=== PATIENT | female | born 1980 | race Caucasian/White ===

== ENCOUNTER 2024-08-14 12:58 | Outpatient (AMB) | payer MEDICAID, SELFPAY ==
[2024-08-14 13:08] VITALS: BP 119/79; PULSE 92; RESP 19; TEMP 36.7; O2SAT 97; BMI 39.9
--- NOTE | 2024-08-14 13:08 | ORTHONT_ITS ---
Vital signs 08/14/24 13:08 Height 1.68 m Height Method Stated Weight 112.236 kg Weight Measurement Method Standing Scale BMI 39.9 BP 119/79 Blood Pressure Source Automatic Cuff Blood Pressure Location Right Upper Arm Position Sitting Respiration 19 Pulse 92 Pulse Source Monitor Temp 98.1 F Temp Source Oral Pulse Oximetry (%) 97 Oxygen Delivery Method Room Air Med/Allergies Allergies & Medications Allergies Unable to Assess Allergy (Verified 08/14/24 13:10) Medication Reconciliation ibuprofen 800 mg tablet 800 mg PO Q6H 08/14/24 [History Confirmed 08/14/24] meloxicam 7.5 mg tablet 7.5 mg PO QDAY #45 tabs 08/14/24 [Rx] Exam Exam Patient is in no acute distress and is cooperative with the examination today. Breathing is nonlabored. Patient has a normal mood and affect. The patient has a gait that is nonantalgic Bilateral extremities were evaluated and demonstrates sensation intact to light touch. Palpable pedal pulses are present. No significant edema is present. Bilateral hips were examined. The patient has no pain with log roll of the hips. Internal rotation to 30 degrees and external rotation to 30 degrees is painless. Negative FADIR. Right knee was examined today. The right knee is in reasonable alignment. Range of motion from 0-120 degrees. Knee is stable to varus and valgus as well as AP translation with <5mm. Patient has a negative McMurrays. There is no pain with patellofemoral compression and no crepitus noted. The knee is nontender to palpation. Left knee was examined today. The left knee is in neutral alignment. Range of motion from 0-120 degrees. Knee is stable to varus and valgus as well as AP translation with <5mm. Patient has a positive McMurrays. There is no pain with patellofemoral compression and no crepitus noted. The knee is Tender to palpation medially Assessment and Plan Problem List (1) Pain in left knee: Status: Acute Plan: Patient is a pleasant 44-year-old female with left knee pain and left knee arthritis as well as a left knee meniscal tear. I would like to see her weightbearing x-rays. She is not tried injections or anti-inflammatories. We will start with both of them. Will get her authorized for injection at the next visit. She has no mechanical symptoms and thus it is reasonable to start with conservative treatment. Office Procedures GNS Level of Care Nursing/Assessment Patient Status: Initial/New Patient Nursing Assessment/Reassesment: Medication Reconciliation, Update PMH in EMR and Vital Signs Coordination of Care: Complex Care/Chronic Disease 5 or more, Education Complex Pt/Fam, Consent,records obtained, informed consent and Staff clarify orders New Patient Charge New Patient Point Assignment: 1099 New Patient Point Charge: CARDIOLOGY CLINICAL CONSULTANT Level 3 (2110-3247) [place] Intake Visit Data Collection New Patient or Established: New Patient (never been to [facility]) Reason for Visit:: LEFT KNEE PAIN [employer]estock [employer] Worker Required: No Questionairres Past Medical History Past Medical History Have you ever been diagnosed with any of the following: Respiratory Problems Smoking: Yes Smoking Cessation Counseling: Yes Subjective Visit Visit for: new patient and knee Immunization / Flu Flu Vaccine in the Last 12 Months: Yes Flu Vaccine Exclusion Criteria: Already Received History of Present Illness Chief complaint: LEFT KNEE PAIN Jihan is a pleasant 44-year-old female with left knee pain that is been ongoing for about a year. She reports the pain is the primary complaint. The pain is on the medial aspect of her knee. She works at nights and is fairly active. She has not had any significant conservative treatment for her left knee except for physical therapy Personal History Red flag PMH: smoker BMI Counceling provided: Yes Pain Pain level (0-10): 8 Pain duration: CONSTANT Pain location: outside (lateral) and anterior Pain quality: sharp Pain timing: night, increases with activity and stairs Associated signs & symptoms: none Ambulatory data Ambulatory device: none Treatments Improvement with previous injections: No Improvement with PT: Yes Improvement with NSAIDS: yes Review of Systems Review of Systems: All systems negative unless otherwise noted in HPI.
== END 2024-08-14 13:33 | disposition home or self-care (01) ==
PROVIDERS: PCP Physician Assistant; Referring Provider Physician Assistant; Supervising Provider Orthopaedic Surgery Adult Reconstructive Orthopaedic Surgery; Visit Provider Orthopaedic Surgery Adult Reconstructive Orthopaedic Surgery
DX: M25.562 Pain in left knee (principal); M17.12 Unilateral primary osteoarthritis, left knee; S83.207A Unspecified tear of unspecified meniscus, current injury, left knee, initial encounter; X58.XXXA Exposure to other specified factors, initial encounter
CPT/HCPCS: 99203; G0463

== ENCOUNTER 2024-08-30 07:49 | Outpatient (AMB) | payer MEDICAID, SELFPAY ==
[2024-08-30 08:13] VITALS: BP 132/83; PULSE 78; RESP 19; TEMP 36.7; O2SAT 98; BMI 37.8
--- NOTE | 2024-08-30 08:13 | ORTHONT_ITS ---
Vital signs 08/30/24 08:13 Height 1.68 m Height Method Stated Weight 106.793 kg Weight Measurement Method Standing Scale BMI 37.8 BP 132/83 H Blood Pressure Source Automatic Cuff Blood Pressure Location Left Upper Arm Position Sitting Respiration 19 Pulse 78 Pulse Source Monitor Temp 98.0 F Temp Source Temporal Artery Scan Pulse Oximetry (%) 98 Oxygen Delivery Method Room Air Med/Allergies Allergies & Medications Allergies Unable to Assess Allergy (Verified 08/30/24 08:14) Medication Reconciliation ibuprofen 800 mg tablet 800 mg PO Q6H 08/14/24 [History Confirmed 08/30/24] meloxicam 7.5 mg tablet 7.5 mg PO QDAY #45 tabs 08/14/24 [Rx Confirmed 08/30/24] Exam Exam Patient is in no acute distress and is cooperative with the examination today. Breathing is nonlabored. Patient has a normal mood and affect. The patient has a gait that is nonantalgic Bilateral extremities were evaluated and demonstrates sensation intact to light touch. Palpable pedal pulses are present. No significant edema is present. Bilateral hips were examined. The patient has no pain with log roll of the hips. Internal rotation to 30 degrees and external rotation to 30 degrees is painless. Negative FADIR. Right knee was examined today. The right knee is in reasonable alignment. Range of motion from 0-120 degrees. Knee is stable to varus and valgus as well as AP translation with <5mm. Patient has a negative McMurrays. There is no pain with patellofemoral compression and no crepitus noted. The knee is nontender to palpation. Left knee was examined today. The left knee is in neutral alignment. Range of motion from 0-120 degrees. Knee is stable to varus and valgus as well as AP translation with <5mm. Patient has a positive McMurrays. There is no pain with patellofemoral compression and no crepitus noted. The knee is Tender to palpation medially Assessment and Plan Problem List (1) Pain in left knee: Status: Acute Plan: Patient is a pleasant 44-year-old female with left knee pain and left knee arthritis as well as a left knee meniscal tear. I would like to see her weightbearing x-rays. She is not tried injections or anti-inflammatories. We will start with both of them. Will get her authorized for injection at the next visit. She has no mechanical symptoms and thus it is reasonable to start with conservative treatment. We did a left knee injection today Recommend knee cortisone injection as patient would like to proceed with conservative treatment at this time. The risks and benefits of the procedure were reviewed with the patient and patient gave verbal consent to continue with the procedure. Procedure: performed by Dr. Delgado Using sterile technique the left knee was thoroughly prepped with alcohol, and approximately 1 cc of Kenalog 40 mg/mL and 4 cc of 1% lidocaine was injected without resistance into the medial tibial femoral joint space. The patient tolerated the procedure. Office Procedures GNS Level of Care Nursing/Assessment Patient Status: Established Patient Nursing Assessment/Reassesment: Medication Reconciliation, Update PMH in EMR and Vital Signs Coordination of Care: Complex Care and Chronic Disease 1-5, Education Complex Pt/Fam, Consent,records obtained, informed consent, Results/Orders obtained and Staff clarify orders Established Patient Charge Established Patient Point Assignment: 95 Established Patient Point Charge: EP Level 3 (80-115) Surgical Proc/IM SQ injection Major Surgical Procedure: Yes (LEFT KNEE INJECTION) Medication Given Medication Given Medication Given: Yes Documented Dose Given: 4 Route: Infiitration Medication Given Medication Given Medication Given: Yes Documented Dose Given: 1 Route: Infiitration Office Meds Xylocaine 10 mg/mL (1 %) injection solution Performing Provider: Venkat Delgado MD Performing Location: [facility] Administered by: Venkat Delgado MD on 08/30/24 08:26 Dose Route Admin Location Dispensed Lot Number Expiration Date [facility] [employer] 20 mL Infiltration 20 mL [id number] 11/20/27 [id number] [facility] triamcinolone acetonide 40 mg/mL suspension for injection Performing Provider: Venkat Deglado MD Performing Location: [facility] Administered by: Venkat Delgado MD on 08/30/24 08:26 Dose Route Admin Location Dispensed Lot Number Expiration Date [facility] [place] [employer] 40 mg intra-articular KNEE 1 mL [id number] 03/21/26 [id number] [facility] [place] Intake Visit Data Collection New Patient or Established: Established Patient (seen at [facility] within 3 years) Reason for Visit:: LEFT KNEE INJECTION Seen by Clinical Staff ONLY (RN/MA): No PCP or OBGYN visit in last 3 months: Yes Hx Now: No Do You Feel Safe at Home: Yes Authorities Contacted: N/A Questionairres Past Medical History Past Medical History Have you ever been diagnosed with any of the following: Respiratory Problems Smoking: Yes Smoking Cessation Counseling: Yes Subjective Visit Visit for: follow up visit, knee (LEFT) and injections Immunization / Flu Flu Vaccine in the Last 12 Months: No Flu Vaccine Exclusion Criteria: No Exclusion Criteria History of Present Illness Chief complaint: LEFT KNEE PAIN Jihan is a pleasant 44-year-old female with left knee pain that is been ongoing for about a year. She reports the pain is the primary complaint. The pain is on the medial aspect of her knee. She works at nights and is fairly active. She has not had any significant conservative treatment for her left knee except for physical therapy. She was supposed to bring her new x-rays but she did not bring any x-rays Personal History Red flag PMH: smoker BMI Counceling provided: Yes Pain Pain level (0-10): 4 Pain duration: CONSTANT Pain location: anterior Pain quality: dull and aching Pain timing: increases with activity and stairs Associated signs & symptoms: none Ambulatory data Ambulatory device: none Treatments Improvement with previous injections: No Improvement with PT: No Improvement with NSAIDS: no Review of Systems Review of Systems: All systems negative unless otherwise noted in HPI.
--- NOTE | 2024-08-30 08:23 | XR_ITS ---
Examination: Bilateral AP knees single view Standing PA, lateral axial left knee 3 views Technique: Bilateral AP knees standing single view Standing PA knees, lateral axial left knee 3 views total 4 views Exam date and time: August 30, 2024 0827 hrs. Indications: Injury to the left knee one year ago with knee pain. Findings: Mild narrowing medial joint spaces bilaterally No knee fractures, no dislocations Impression: Mild narrowing medial joint spaces bilaterally
== END 2024-08-30 08:28 | disposition home or self-care (01) ==
PROVIDERS: PCP Physician Assistant; Referring Provider Physician Assistant; Supervising Provider Orthopaedic Surgery Adult Reconstructive Orthopaedic Surgery; Visit Provider Orthopaedic Surgery Adult Reconstructive Orthopaedic Surgery
DX: M25.562 Pain in left knee (principal); M17.12 Unilateral primary osteoarthritis, left knee; S83.207D Unspecified tear of unspecified meniscus, current injury, left knee, subsequent encounter; X58.XXXD Exposure to other specified factors, subsequent encounter
CPT/HCPCS: 20610; 73564; 99213; J3301; J3490; G0463

== ENCOUNTER 2024-09-20 07:54 | Outpatient (AMB) | payer MEDICAID, SELFPAY ==
[2024-09-20 08:11] VITALS: BP 135/85; PULSE 91; RESP 18; TEMP 36.5; O2SAT 95; BMI 38.1
--- NOTE | 2024-09-20 08:11 | PD.ORTHCLVIS ---
Vital signs 09/20/24 08:11 Height 1.68 m Height Method Stated Weight 107.728 kg Weight Measurement Method Standing Scale BMI 38.1 BP 135/85 H Blood Pressure Source Automatic Cuff Blood Pressure Location Right Upper Arm Position Sitting Respiration 18 Pulse 91 Pulse Source Monitor Temp 97.7 F Temp Source Temporal Artery Scan Pulse Oximetry (%) 95 Oxygen Delivery Method Room Air Med/Allergies Allergies & Medications Allergies Unable to Assess Allergy (Verified 09/20/24 08:12) Medication Reconciliation ibuprofen 800 mg tablet 800 mg PO Q6H 08/14/24 [History Confirmed 09/20/24] meloxicam 7.5 mg tablet 7.5 mg PO QDAY #45 tabs 08/14/24 [Rx Confirmed 09/20/24] Exam Exam Patient is in no acute distress and is cooperative with the examination today. Breathing is nonlabored. Patient has a normal mood and affect. The patient has a gait that is nonantalgic Bilateral extremities were evaluated and demonstrates sensation intact to light touch. Palpable pedal pulses are present. No significant edema is present. Bilateral hips were examined. The patient has no pain with log roll of the hips. Internal rotation to 30 degrees and external rotation to 30 degrees is painless. Negative FADIR. Right knee was examined today. The right knee is in reasonable alignment. Range of motion from 0-120 degrees. Knee is stable to varus and valgus as well as AP translation with <5mm. Patient has a negative McMurrays. There is no pain with patellofemoral compression and no crepitus noted. The knee is nontender to palpation. Left knee was examined today. The left knee is in neutral alignment. Range of motion from 0-120 degrees. Knee is stable to varus and valgus as well as AP translation with <5mm. Patient has a positive McMurrays. There is no pain with patellofemoral compression and no crepitus noted. The knee is Tender to palpation medially X-rays demonstrate no significant arthritis and no fractures Assessment and Plan Problem List (1) Pain in left knee: Status: Acute Plan: Patient is a pleasant 44-year-old female with left knee pain and left knee arthritis as well as a left knee meniscal tear. I would like to see her weightbearing x-rays. She is not tried injections or anti-inflammatories. We will start with both of them. We will continue with conservative management at this time. Office Procedures GNS Level of Care Nursing/Assessment Patient Status: Established Patient Nursing Assessment/Reassesment: Medication Reconciliation, Update PMH in EMR and Vital Signs Coordination of Care: Complex Care and Chronic Disease 1-5, Education Complex Pt/Fam, Consent,records obtained, informed consent, Results/Orders obtained and Staff clarify orders Established Patient Charge Established Patient Point Assignment: 95 Established Patient Point Charge: EP Level 3 (80-115) [place] Intake Visit Data Collection New Patient or Established: Established Patient (seen at [facility] within 3 years) Reason for Visit:: F/U KNEE PAIN Seen by Clinical Staff ONLY (RN/MA): No Verbal consent obtained for Telemed visit?: No [employer] Required: No PCP or OBGYN visit in last 3 months: Yes Hx Now: No Do You Feel Safe at Home: Yes Authorities Contacted: N/A Questionairres Past Medical History Past Medical History Have you ever been diagnosed with any of the following: Respiratory Problems Smoking: Yes Smoking Cessation Counseling: Yes Subjective Visit Visit for: follow up visit and knee Immunization / Flu Flu Vaccine in the Last 12 Months: No Flu Vaccine Exclusion Criteria: No Exclusion Criteria History of Present Illness Chief complaint: FOLLOW UP KNEE PAIN Jihan is a pleasant 44-year-old female with left knee pain that is been ongoing for about a year. She reports the pain is the primary complaint. The pain is on the medial aspect of her knee. She works at nights and is fairly active. She has not had any significant conservative treatment for her left knee except for physical therapy. She did well up until about a Week ago. She had a injection and reported good relief until recently. She reports that there was an incident where she had an exacerbation of her knee pain. The pain has been significantly better since then Personal History Red flag PMH: smoker BMI Counceling provided: Yes Pain Pain level (0-10): 3 Pain duration: WITH MOVEMENT Pain location: inside (medial) and anterior Pain quality: sharp, dull and aching Pain timing: night and increases with activity Associated signs & symptoms: none Ambulatory data Ambulatory device: none Treatments Number of previous injections: 1 Improvement with previous injections: No Improvement with PT: No Improvement with NSAIDS: no Review of Systems Review of Systems: All systems negative unless otherwise noted in HPI.
== END 2024-09-20 08:28 | disposition home or self-care (01) ==
LOC: HODSRG 07:54
PROVIDERS: PCP Nurse Practitioner Adult Health; Referring Provider Nurse Practitioner Adult Health; Supervising Provider Orthopaedic Surgery Adult Reconstructive Orthopaedic Surgery; Visit Provider Orthopaedic Surgery Adult Reconstructive Orthopaedic Surgery
DX: M25.562 Pain in left knee (principal); M17.12 Unilateral primary osteoarthritis, left knee
CPT/HCPCS: 99213; G0463

== ENCOUNTER 2024-11-15 08:09 | Outpatient (AMB) | payer MEDICAID, SELFPAY ==
[2024-11-15 08:18] VITALS: BP 113/74; PULSE 95; RESP 18; TEMP 36.5; O2SAT 95; BMI 38.6
--- NOTE | 2024-11-15 08:18 | PD.ORTHCLVIS ---
Vital signs 11/15/24 08:18 Height 1.68 m Height Method Stated Weight 108.976 kg Weight Measurement Method Standing Scale BMI 38.6 BP 113/74 Blood Pressure Source Automatic Cuff Blood Pressure Location Right Upper Arm Position Sitting Respiration 18 Pulse 95 Pulse Source Monitor Temp 97.7 F Temp Source Temporal Artery Scan Pulse Oximetry (%) 95 Oxygen Delivery Method Room Air Med/Allergies Allergies & Medications Allergies Unable to Assess Allergy (Verified 11/15/24 08:18) Medication Reconciliation ibuprofen 800 mg tablet 800 mg PO Q6H 08/14/24 [History Confirmed 11/15/24] meloxicam 7.5 mg tablet 7.5 mg PO QDAY #45 tabs 08/14/24 [Rx Confirmed 11/15/24] Exam Exam Patient is in no acute distress and is cooperative with the examination today. Breathing is nonlabored. Patient has a normal mood and affect. The patient has a gait that is nonantalgic Bilateral extremities were evaluated and demonstrates sensation intact to light touch. Palpable pedal pulses are present. No significant edema is present. Bilateral hips were examined. The patient has no pain with log roll of the hips. Internal rotation to 30 degrees and external rotation to 30 degrees is painless. Negative FADIR. Right knee was examined today. The right knee is in reasonable alignment. Range of motion from 0-120 degrees. Knee is stable to varus and valgus as well as AP translation with <5mm. Patient has a negative McMurrays. There is no pain with patellofemoral compression and no crepitus noted. The knee is nontender to palpation. Left knee was examined today. The left knee is in neutral alignment. Range of motion from 0-120 degrees. Knee is stable to varus and valgus as well as AP translation with <5mm. Patient has a positive McMurrays. There is no pain with patellofemoral compression and no crepitus noted. The knee is Tender to palpation medially X-rays demonstrate no significant arthritis and no fractures Assessment and Plan Problem List (1) Pain in left knee: Status: Acute Plan: Patient is a pleasant 44-year-old female with left knee pain and left knee arthritis as well as a left knee meniscal tear. I would like to see her weightbearing x-rays. She is not tried injections or anti-inflammatories. We will start with both of them. We will continue with conservative management at this time. Recommend knee cortisone injection as patient would like to proceed with conservative treatment at this time. The risks and benefits of the procedure were reviewed with the patient and patient gave verbal consent to continue with the procedure. Procedure: performed by Dr. Delgado Using sterile technique the left knee was thoroughly prepped with alcohol, and approximately 1 cc of Kenalog 40 mg/mL and 4 cc of 1% lidocaine was injected without resistance into the medial tibial femoral joint space. The patient tolerated the procedure. Office Procedures GNS Level of Care Nursing/Assessment Patient Status: Established Patient Nursing Assessment/Reassesment: Medication Reconciliation, Update PMH in EMR and Vital Signs Coordination of Care: Complex Care and Chronic Disease 1-5, Education Complex Pt/Fam, Consent,records obtained, informed consent, Results/Orders obtained and Staff clarify orders Established Patient Charge Established Patient Point Assignment: 95 Established Patient Point Charge: EP Level 3 (80-115) Surgical Proc/IM SQ injection Major Surgical Procedure: Yes (knee injection ) Medication Given Medication Given Medication Given: Yes Documented Dose Given: 4 Route: Infiitration Medication Given Medication Given Medication Given: Yes Documented Dose Given: 1 Route: Infiitration Office Meds Xylocaine 10 mg/mL (1 %) injection solution Performing Provider: Venkat Delgado MD Performing Location: [facility] Administered by: Venkat Delgado MD on 11/15/24 08:38 Dose Route Admin Location Dispensed Lot Number Expiration Date [facility] [place] [employer] Automatic 20 mL Infiltration 20 mL [id number] [facility] triamcinolone acetonide 40 mg/mL suspension for injection Performing Provider: Venkat Delgado MD Performing Location: [facility] Administered by: Venkat Delgado MD on 11/15/24 08:38 Dose Route Admin Location Dispensed Lot Number Expiration Date [facility] [place] Feeder Operator Automatic 40 mg intra-articular LEFT KNEE 1 mL [id number] 05/23/26 77852-302-51 WILI CEDILLO [place] Intake Visit Data Collection New Patient or Established: Established Patient (seen at [facility] within 3 years) Reason for Visit:: f/u 3 months knee injection Seen by Clinical Staff ONLY (RN/MA): No Verbal consent obtained for Telemed visit?: No Automobile Engine Assembler Required: No PCP or OBGYN visit in last 3 months: Yes Hx Now: No Do You Feel Safe at Home: Yes Authorities Contacted: N/A Questionairres Past Medical History Past Medical History Have you ever been diagnosed with any of the following: Respiratory Problems Smoking: Yes Smoking Cessation Counseling: Yes Subjective Visit Visit for: follow up visit, knee and injections Immunization / Flu Flu Vaccine in the Last 12 Months: No Flu Vaccine Exclusion Criteria: No Exclusion Criteria History of Present Illness Chief complaint: 3 month follow up on knee injection Jihan is a pleasant 44-year-old female with left knee pain that is been ongoing for about a year. She reports the pain is the primary complaint. The pain is on the medial aspect of her knee. She works at nights and is fairly active. She has not had any significant conservative treatment for her left knee except for physical therapy. She is doing well with cortisone injections and like another 1 today. We discussed arthroscopic surgery and she would like to proceed with continued conservative management at this time Personal History Red flag PMH: BMI BMI Counceling provided: Yes Pain Pain level (0-10): 2 Pain duration: WITH MOVEMENT Pain location: anterior Pain quality: sharp, dull and aching Pain timing: night and increases with activity Associated signs & symptoms: none Ambulatory data Ambulatory device: none Treatments Number of previous injections: 1 Improvement with previous injections: Yes Improvement with PT: No Improvement with NSAIDS: no Review of Systems Review of Systems: All systems negative unless otherwise noted in HPI.
== END 2024-11-15 08:30 | disposition home or self-care (01) ==
LOC: HODSRG 08:09
PROVIDERS: PCP Physician Assistant; Referring Provider Physician Assistant; Supervising Provider Orthopaedic Surgery Adult Reconstructive Orthopaedic Surgery; Visit Provider Orthopaedic Surgery Adult Reconstructive Orthopaedic Surgery
DX: M25.562 Pain in left knee (principal); M17.12 Unilateral primary osteoarthritis, left knee; S83.207D Unspecified tear of unspecified meniscus, current injury, left knee, subsequent encounter; X58.XXXD Exposure to other specified factors, subsequent encounter
CPT/HCPCS: 20610; 99213; J3301; J3490; G0463